=== PATIENT | male | born 1980 | race African-American/Black ===

== ENCOUNTER 2023-03-05 10:43 | Emergency (ER) | payer MEDICAID ==
[~2023-03-05] VITALS: Ht 177.8 cm; Wt 68.0 kg
[2023-03-05] MEDS ORDERED: DIPHENHYDRAMINE 50MG/ML VIAL IM STA (11:02)
[2023-03-05] MEDS ORDERED: LORAZEPAM 2MG/ML CPJ IM STA (11:02)
[2023-03-05] MEDS ORDERED: HALOPERIDOL LACTATE 5MG/ML VIAL IM STA (11:02)
[2023-03-05 11:36] LABS: BASOPHILS % 0.2 % (0.0-2.0); HEMATOCRIT. 37.8 % (42.0-52.0); HEMOGLOBIN. 12.7 g/dL (14.0-18.0); LYMPHOCYTES % 10.1 % (20.0-50.0); MEAN CORPUSCULAR VOLUME 86.2 fL (80.0-94.0); MEAN PLATELET VOLUME 7.8 fl (7.4-10.4); MONOCYTES % 8.2 % (2.0-8.0); NEUTROPHILS % 81.5 % (40.0-76.0); PLATELET 211 x1000/uL (130-400); RED BLOOD CELL COUNT 4.39 mill/uL (4.7-6.1); RED CELL DISTRIBUTION WIDTH 14.1 % (11.6-14.6)
[2023-03-05 11:38] LABS: CLARITY URINE CLEAR (CLEAR); COLOR URINE YELLOW (YELLOW); KETONES URINE NEGATIVE (NEGATIVE); LEUKOCYTE ESTERASE URINE NEGATIVE (NEGATIVE); NITRITE URINE NEGATIVE (NEGATIVE); OCCULT BLOOD URINE 1+ (NEGATIVE); PROTEIN URINE NEGATIVE (NEGATIVE); SPECIFIC GRAVITY URINE 1.009 (1.005-1.030)
[2023-03-05 11:48] LABS: CHLORIDE 107 mEq/L (98-107)
[2023-03-05 11:55] LABS: ETHANOL BLOOD < 10 mg/dL
[2023-03-05 12:11] LABS: *AMPHETAMINES SCREEN URINE NEGATIVE (NEGATIVE); *BARBITURATES SCREEN URINE NEGATIVE (NEGATIVE); *BENZODIAZEPINES SCREEN URINE NEGATIVE (NEGATIVE); *COCAINE SCREEN URINE NEGATIVE (NEGATIVE); CANNABINOID URINE SCREEN PRESUMTIVE POSITIVE (NEGATIVE); METHADONE URINE SCREEN NEGATIVE (NEGATIVE); OPIATES URINE SCREEN NEGATIVE (NEGATIVE); PHENCYCLIDINE URINE SCREEN NEGATIVE (NEGATIVE)
[2023-03-05] MEDS ORDERED: SODIUM CHLORIDE 0.9% 1,000 ML IV ONE (13:30)
[2023-03-06] VITALS: BP 131/69
== END 2023-03-06 02:05 | disposition home or self-care (01) ==
LOC: ER 11:03
DX: F23 Brief psychotic disorder (principal); R45.1 Restlessness and agitation
CPT/HCPCS: 36415; 80053; 80305; 80320; 81003; 85025; 96360; 96372; 99291; J1200; J1630; J2060; G0480